=== PATIENT | male | born 1950 | race Caucasian/White ===

== ENCOUNTER 2017-10-26 17:47 | Inpatient (IN) | payer OTHER, MEDICARE ==
[~2017-10-26] VITALS: Ht 175.3 cm; Wt 94.4 kg
[~2017-10-26 17:47] MED LIST changes: -Aspir 8181 MG PO
[2017-10-26] MEDS ORDERED: Aspir 8181 MG PO (21:43)
[2017-10-27 07:36] LABS: Alanine Aminotransfer (ALT/SGP 21 U/L (12-78); Albumin, Blood 3.2 g/dL (3.4-5.0); Albumin/Globulin Ratio 0.9 (0.8-1.8); Alk Phos 87 U/L (50-136); Anion Gap 6 mmol/L (6-16); Aspartate Aminotrans (AST/SGOT 16 U/L (12-37); Bilirubin, Total 0.6 mg/dL (0.1-1.0); Blood Urea Nitrogen 16 mg/dL (8-24); CO2, Blood 27 mmol/L (21-32); Calcium, Blood 8.1 mg/dL (8.5-10.1); Chloride, Blood 111 mmol/L (98-108); Creatinine, Blood 0.84 mg/dL (0.60-1.20); Globulin, Blood 3.4 g/dL (2.2-4.0); Glomerular Filtration Rate >60 (60-); Glucose, Blood 82 mg/dL (70-99); Potassium, Blood 3.9 mmol/L (3.5-5.5); Sodium, Blood 144 mmol/L (136-145); Total Protein, Blood 6.6 g/dL (6.4-8.2)
[2017-10-27 08:02] LABS: International Normalized Ratio 1.07; Prothrombin Time Results 11.1 Sec (9.7-11.5)
== END 2017-10-28 00:15 | disposition short-term general hospital (02) | DRG 282 ==
LOC: ER 17:47 → PCU 17:48
PROVIDERS: Family Medicine; Internal Medicine Cardiovascular Disease
PROC: 4A023N7 Measurement of Cardiac Sampling and Pressure, Left Heart, Percutaneous Approach (ICD-10-PCS; principal; 2017-10-27)
PROC: B2111ZZ Fluoroscopy of Multiple Coronary Arteries using Low Osmolar Contrast (ICD-10-PCS; 2017-10-27)
DX: I21.4 Non-ST elevation (NSTEMI) myocardial infarction (principal); I10 Essential (primary) hypertension; I51.7 Cardiomegaly; N40.0 Benign prostatic hyperplasia without lower urinary tract symptoms; R00.1 Bradycardia, unspecified; I25.10 Atherosclerotic heart disease of native coronary artery without angina pectoris; E78.5 Hyperlipidemia, unspecified
CPT/HCPCS: 36415; 80053; 83735; 84484; 85610; 86850; 86900; 86901; 93005; 93010; 93306; 93458; 99152; 99153; 99285; C1769; C1894; J0690; J1644; J2250; J3010; J7030; Q9967

== ENCOUNTER → 2017-10-26 | Outpatient (CLI) | payer OTHER ==
[~2017-10-26] MED LIST: ASPI81CH PO; Aspir 8181 MG PO; BENAML20/5 PO; NAPR220 PO
[2017-10-26 16:51] LABS: BASOPHILS ABSOLUTE AUTO 0.04 K/mm3 (0.00-0.23); BASOPHILS PERCENT AUTO 1 % (0-2); EOSINOPHILS PERCENT AUTO 2 % (0-6); Hemoglobin 13.9 g/dL (13.5-17.5); IMMATURE GRAN ABSOLUTE AUTO 0.01 K/mm3 (0.00-0.10); IMMATURE GRAN PERCENT AUTO 0 % (0-1); LYMPHOCYTES ABSOLUTE AUTO 1.46 K/mm3 (0.84-5.20); LYMPHOCYTES PERCENT AUTO 26 % (21-46); MONOCYTES ABSOLUTE AUTO 0.58 K/mm3 (0.16-1.47); MONOCYTES PERCENT AUTO 11 % (4-13); Mean Corpuscular HGB 28.7 pg (26.0-34.0); Mean Corpuscular HGB Conc 33.1 g/dL (31.5-36.5); Mean Corpuscular Volume 87 fL (80-100); Mean Platelet Volume 10.2 fL (9.1-12.4); NEUTROPHILS ABSOLUTE AUTO 3.33 K/mm3 (1.96-9.15); NEUTROPHILS PERCENT AUTO 60 % (41-73); Platelet Count 211 K/mm3 (150-400); RDW Coefficient Variation 13.8 % (11.7-14.2); RDW Standard Deviation 43.8 fL (35.1-46.3); Red Blood Cell Count 4.85 M/mm3 (4.30-5.90); White Blood Cell Count 5.52 K/mm3 (4.00-11.30)
[2017-10-26 17:10] LABS: Alanine Aminotransfer (ALT/SGP 24 U/L (12-78); Albumin, Blood 3.6 g/dL (3.4-5.0); Alk Phos 90 U/L (40-126); Anion Gap 7 mmol/L (6-16); Aspartate Aminotrans (AST/SGOT 20 U/L (12-37); Bilirubin, Total 0.3 mg/dL (0.1-1.0); Blood Urea Nitrogen 24 mg/dL (8-24); Bun/Creatinine Ratio 24.7 (12.0-20.0); CO2, Blood 27 mmol/L (21-32); Calcium, Blood 8.7 mg/dL (8.5-10.1); Chloride, Blood 107 mmol/L (98-108); Creatinine, Blood 0.97 mg/dL (0.60-1.20); Globulin, Blood 3.5 g/dL (2.2-4.0); Glomerular Filtration Rate >60 (60-); Glucose, Blood 97 mg/dL (70-99); Potassium, Blood 3.9 mmol/L (3.5-5.5); Sodium, Blood 141 mmol/L (136-145); Thyroid Stimulating Hormone 4.352 uIU/mL (0.360-4.800); Total Protein, Blood 7.1 g/dL (6.4-8.2); Troponin I 0.151 ng/mL (0.000-0.040)
== END ==
LOC: LAB EV 16:45 → LAB SHORT 16:45
PROVIDERS: Physician Assistant
DX: R07.89 Other chest pain (principal); R06.02 Shortness of breath
CPT/HCPCS: 80053; 83690; 83880; 84443; 84484; 85025

== ENCOUNTER 2023-09-01 08:04 | Day surgery (SDC) | payer MEDICARE ==
[~2023-09-01] VITALS: Ht 175.3 cm; Wt 95.1 kg
[~2023-09-01 08:04] MED LIST changes: +ATOR40TA PO; +Aspir 8181 MG PO; +Lactated Ringer's 1,000 ML IV ONE; +OLME20 PO; +propofoL 50 ML IV ONE
[2023-09-01] MEDS ORDERED: Lactated Ringer's 1,000 ML IV ONE (09:21)
[2023-09-01 10:25] VITALS: BP 152/78
== END 2023-09-01 10:22 | disposition home or self-care (01) ==
LOC: ORSCSDS 08:04
PROVIDERS: Surgery
PROC: 0DBK8ZX Excision of Ascending Colon, Via Natural or Artificial Opening Endoscopic, Diagnostic (ICD-10-PCS; principal; 2023-09-01 09:15)
DX: Z12.11 Encounter for screening for malignant neoplasm of colon (principal); Z86.010 Personal history of colon polyps; D12.2 Benign neoplasm of ascending colon; K57.30 Diverticulosis of large intestine without perforation or abscess without bleeding; E78.00 Pure hypercholesterolemia, unspecified; I10 Essential (primary) hypertension; Z79.82 Long term (current) use of aspirin; Z79.899 Other long term (current) drug therapy
CPT/HCPCS: 88305; J2704; J7120

== ENCOUNTER 2024-08-31 06:59 | Day surgery (SDC) | payer MEDICARE ==
[2024-08-31] VITALS (10 sets, daily range): BP systolic 143–186; BP diastolic 72–96
[~2024-08-31] VITALS: Ht 175.3 cm; Wt 100.2 kg
[~2024-08-31 06:59] MED LIST changes: +CENTRUM SILVER1 EAC2 PO; +ISOSORBIDE MONO60 MG PO; +LISI5 PO; -Lactated Ringer's 1,000 ML IV ONE; +NITR.4SL SL; +SUFLAVE POWDER1 EACH PO; -propofoL 50 ML IV ONE
[2024-08-31] MEDS ORDERED: NS 250 ML IV ONE (07:22)
[2024-08-31] MEDS ORDERED: NS 1,000 ML IV ONE ×2 (07:22→07:55)
[2024-08-31] MEDS ORDERED: Heparin Sodium 1000 Units/ML 10ML MDV ONE ×2 (07:22→07:55)
[2024-08-31] MEDS ORDERED: FentaNYL Citrate 50 MCG/ML 2 ML Injection ONE (07:55)
[2024-08-31] MEDS ORDERED: Midazolam HCl 1MG / ML 2ML Vial ONE ×2 (07:55→09:23)
[2024-08-31] MEDS ORDERED: Nitroglycerin 2 MG/20 ML BTL ONE (09:06)
[2024-08-31] MEDS ORDERED: HydrALAZINE HCl 20 MG / ML 1ML Vial ONE (09:22)
--- NOTE | 2024-08-31 09:50 | NUR ---
pt to recovery from lab. pt a&ox4. repeat v/s. r groin soft and non-tender per pt. no bleeding noted. call light w/in reach.
--- NOTE | 2024-08-31 10:03 | NUR ---
dr shore at bedside discussing procedure and future plan of care w/ pt.
--- NOTE | 2024-08-31 10:18 | NUR ---
groin site soft and non-tender per pt. no bleeding noted.
--- NOTE | 2024-08-31 10:45 | NUR ---
pt given urinal per request. groin site soft and non-tender per pt. no bleeding noted. pt sat to 30 degrees. pt given food per request.
--- NOTE | 2024-08-31 11:03 | NUR ---
groin site soft and non-tender per pt. no bleeding noted.
--- NOTE | 2024-08-31 12:11 | NUR ---
pt given pill cutter and informed to call office when running low on benicar script.
--- NOTE | 2024-08-31 12:18 | NUR ---
pt given dc instructions and verblaized understanding. iv out. pt changed. groin site soft and non-tender per pt. no sign of bleeding. pt requested to wait for , jairon, by pt entrnace. pt taken to pt entrnace via [place]. jairon to take pt home.
== END 2024-08-31 12:32 | disposition home or self-care (01) ==
LOC: MHTC 06:59
DX: I25.110 Atherosclerotic heart disease of native coronary artery with unstable angina pectoris (principal); I10 Essential (primary) hypertension; E78.00 Pure hypercholesterolemia, unspecified; Z79.82 Long term (current) use of aspirin; Z95.1 Presence of aortocoronary bypass graft
CPT/HCPCS: 76937; 93459; 93571; 93572; 99152; 99153; C1760; C1769; C1887; C1894; J0360; J1644; J2250; J3010; J7030; J7050; Q9967